=== PATIENT | male | born 1950 | race Caucasian/White ===

== ENCOUNTER 2018-03-18 06:02 | Day surgery (SDC) | payer OTHER ==
[2018-03-18] MEDS ORDERED: DIPRIVAN 200 MG/20 ML IV ONE (06:03)
[2018-03-18] MEDS ORDERED: Lactated Ringers 1,000 ML IV SCH (06:30)
[2018-03-18] MEDS ORDERED: Lactated Ringers 1,000 ML IV ONE (07:59)
--- NOTE | 2018-03-18 09:27 | OP ---
SURGERY DATE/TIME: 03/18/2018 0756 PREOPERATIVE DIAGNOSES: 1) Persistent gastroesophageal reflux disease. 2) Screening colonoscopy. POSTOPERATIVE DIAGNOSES: 1) Gastric polyps. 2) Normal colon. PROCEDURES: 1) EGD. 2) Colonoscopy. SURGEON: Molina Blancas M.D. ANESTHESIA: MAC by Mario Sutton CRNA. ESTIMATED BLOOD LOSS: Minimal. SPECIMENS: Cold forceps biopsies of gastric polyps. DESCRIPTION OF PROCEDURE: After informed written consent was obtained, the patient was taken to the endoscopy suite. The patient underwent monitored anesthesia. A bite block was inserted. He is placed in the left lateral decubitus position. The endoscope is inserted in posterior oropharynx and under direct visualization the esophagus was traversed. The posterior oropharynx appeared normal. The esophageal mucosa had a normal appearance upon entry into the stomach. The gastroesophageal junction noted to be normal as well. There were multiple polypoid lesions throughout the gastric mucosa otherwise a normal rugated gastric mucosa. The gastric antrum was normal. The pylorus was traversed and the first and second portions of the duodenum were within normal limits. Three small sales account representative gastric polyps were removed with cold forceps and sent for pathology testing. Upon withdrawal again all mucosal structures appeared normal. The scope is removed and the scopes were switched. A digital rectal exam showed normal sphincter tone and no internal lesions. The scope was inserted in the rectum and sequentially the entire colonic mucosa was traversed. The level of cecum was reached and verified with direct visualization of ileocecal valve. No obvious mucosal abnormalities were appreciable upon withdrawal. Prior to withdrawal retroflexion was performed and was within normal limits. The scope was removed and the patient was transferred to the recovery room in excellent condition.
[2018-03-18 09:46] VITALS: BP 142/67; PULSE 71; O2SAT 97
== END 2018-03-18 09:35 | disposition home or self-care (01) ==
LOC: SDC 06:02
PROVIDERS: ATTEND Family Medicine
DX: Z12.11 Encounter for screening for malignant neoplasm of colon (principal); K31.7 Polyp of stomach and duodenum; K21.9 Gastro-esophageal reflux disease without esophagitis
CPT/HCPCS: J2704